=== PATIENT | female | born 1970 | race Caucasian/White ===

== ENCOUNTER 2019-08-01 10:45 | Emergency (ER) | payer MEDICAID ==
[~2019-08-01] VITALS: Ht 167.6 cm; Wt 95.5 kg
[2019-08-01] MEDS ORDERED: ASPI81 PO (10:59)
[2019-08-01] MEDS ORDERED: HYDR25TA PO (10:59)
[2019-08-01] MEDS ORDERED: ATOR40TA28 PO (10:59)
[2019-08-01] MEDS ORDERED: KETOROLAC TROMETHAMINE 30 MG/ML VIAL IM ONE (11:45)
[2019-08-01 12:46] VITALS: BP 122/78
== END 2019-08-01 12:53 | disposition home or self-care (01) ==
LOC: EMS 10:47
DX: M54.12 Radiculopathy, cervical region (principal); E78.00 Pure hypercholesterolemia, unspecified; I10 Essential (primary) hypertension; F17.210 Nicotine dependence, cigarettes, uncomplicated; Z79.82 Long term (current) use of aspirin; Z79.899 Other long term (current) drug therapy
CPT/HCPCS: 96372; 99283; J1885